=== PATIENT | male | born 1985 | race Asian ===

== ENCOUNTER 2023-06-26 17:22 | Emergency (ER) | payer MEDICAID ==
[~2023-06-26] VITALS: Ht 165.1 cm; Wt 63.5 kg
[2023-06-26 17:30] VITALS: BP_SYST 122; PULSE 102; RESP 15; TEMP 97.3; O2SAT 97
[2023-06-26 18:41] LABS: ERYTHROCYTE SEDIMENTATION RATE 3 MM/HR (0-15)
[2023-06-26 18:46] LABS: BASOPHILS # (AUTO) 0.1 K/uL (0.0-0.2); EOSINOPHILS # (AUTO) 0.2 K/uL (0.0-0.4); EOSINOPHILS % (AUTO) 2.3 % (0.0-4.0); HEMATOCRIT 42.7 % (36-54); HEMOGLOBIN 14.4 g/dL (14.0-18.0); LYMPHOCYTES # (AUTO) 1.5 K/uL (1.0-5.5); LYMPHOCYTES % (AUTO) 16.5 % (20.5-51.5); MEAN CORPUSCULAR HEMOGLOBIN 31 pg (27-31); MEAN CORPUSCULAR HGB CONC 34 % (32-36); MEAN CORPUSCULAR VOLUME 91 fL (79.0-98.0); MONOCYTES # (AUTO) 0.8 K/uL (0.0-1.0); MONOCYTES % (AUTO) 8.4 % (1.7-9.3); NEUTROPHILS # (AUTO) 6.7 K/uL (1.8-7.7); NEUTROPHILS % (AUTO) 71.8 % (40.0-70.0); PLATELET COUNT (AUTO) 253 K/uL (130-430); RED BLOOD CELL COUNT(AUTO) 4.71 MIL/uL (4.2-6.2); RED CELL DISTRIBUTION WIDTH 12.9 % (9.0-15.0); WHITE BLOOD COUNT (AUTO) 9.3 K/uL (4.8-10.8)
[2023-06-26 18:56] LABS: CALCIUM 8.6 mg/dL (8.4-11.0); CREATININE 0.89 mg/dL (0.55-1.30); POTASSIUM 4.3 mmol/L (3.5-5.1)
[2023-06-26 19:00] LABS: INR 1.1 (0.80-1.20); PROTHROMBIN TIME 10.9 SECS (9.5-12.5)
[2023-06-26] MEDS: IBUPROFEN 800 MG TABLET PO ONE (19:30)
[2023-06-26] MEDS ORDERED: IBUP800T54 PO (20:11)
[2023-06-26 20:36] VITALS: BP_SYST 121; PULSE 74; RESP 20; TEMP 97.4; O2SAT 99
== END 2023-06-26 20:36 | disposition home or self-care (01) ==
LOC: SED 17:22
DX: R51.9 Headache, unspecified (principal); I10 Essential (primary) hypertension; Z79.899 Other long term (current) drug therapy
CPT/HCPCS: 36415; 70450-TC; 80048; 85025; 85610; 85651; 85730; 99284